=== PATIENT | female | born 1930 ===

== ENCOUNTER 2019-05-26 12:45 | Outpatient (CLI) | payer MEDICARE, OTHER ==
[2019-05-26 12:52] LABS: INR-International Normal Ratio 1.3
== END 2019-05-26 12:46 | disposition home or self-care (01) ==
LOC: MADLAB 12:45
PROVIDERS: ATTEND Nurse Practitioner Family
DX: Z51.81 Encounter for therapeutic drug level monitoring (principal); Z79.01 Long term (current) use of anticoagulants
CPT/HCPCS: 85610

== ENCOUNTER 2019-07-01 14:29 | Outpatient (CLI) | payer MEDICARE, OTHER ==
[2019-07-01 14:35] LABS: INR-International Normal Ratio 2.8; Prothrombin Time 29.1 SEC (12.0-14.7)
== END 2019-07-01 14:30 | disposition home or self-care (01) ==
LOC: MADLAB 14:29
PROVIDERS: ATTEND Internal Medicine Hematology & Oncology
DX: Z51.81 Encounter for therapeutic drug level monitoring (principal); Z79.01 Long term (current) use of anticoagulants
CPT/HCPCS: 36415; 85610

== ENCOUNTER 2019-07-20 12:36 | Outpatient (CLI) | payer MEDICARE, OTHER ==
[2019-07-20 12:47] LABS: INR-International Normal Ratio 2.7; Prothrombin Time 28.4 SEC (12.0-14.7)
== END 2019-07-20 12:37 | disposition home or self-care (01) ==
LOC: MADLAB 12:36
PROVIDERS: ATTEND Family Medicine
DX: Z51.81 Encounter for therapeutic drug level monitoring (principal); Z79.01 Long term (current) use of anticoagulants
CPT/HCPCS: 85610

== ENCOUNTER 2019-08-02 13:02 | Outpatient (CLI) | payer MEDICARE, OTHER ==
[2019-08-02 13:27] LABS: INR-International Normal Ratio 3.8; Prothrombin Time 36.8 SEC (12.0-14.7)
== END 2019-08-02 13:03 | disposition home or self-care (01) ==
LOC: MADLAB 13:02
PROVIDERS: ATTEND Family Medicine
DX: Z51.81 Encounter for therapeutic drug level monitoring (principal); Z79.01 Long term (current) use of anticoagulants
CPT/HCPCS: 85610

== ENCOUNTER 2019-08-16 12:17 | Outpatient (CLI) | payer MEDICARE, OTHER ==
[2019-08-16 13:13] LABS: Prothrombin Time 30.5 SEC (12.0-14.7)
[2019-08-16 13:15] LABS: Bilirubin Negative (Negative); Blood, Urine Trace (Negative); Clarity Slightly Cloudy (Clear); Glucose, Urine (Dipstick) Negative (Negative); Leukocyte Large (Negative); Nitrite Positive (Negative); Protein, Urine (Dipstick) Negative (Neg-Trace); Urobilinogen 0.2 mg/dL (Less than 2)
[2019-08-16 13:18] LABS: Bacteria/HPF 3+ HPF (None Seen); WBC/HPF Greater Than 50 HPF (0-3)
== END 2019-08-16 12:18 | disposition home or self-care (01) ==
LOC: MADLAB 12:17
PROVIDERS: ATTEND Urology
DX: Z51.81 Encounter for therapeutic drug level monitoring (principal); N39.0 Urinary tract infection, site not specified; Z79.01 Long term (current) use of anticoagulants
CPT/HCPCS: 81001; 85610; 87077; 87086; 87186

== ENCOUNTER 2019-08-30 13:08 | Outpatient (CLI) | payer MEDICARE, OTHER ==
[2019-08-30 13:48] LABS: INR-International Normal Ratio 3.2; Prothrombin Time 32.1 SEC (12.0-14.7)
== END 2019-08-30 13:09 | disposition home or self-care (01) ==
LOC: MADLAB 13:08
PROVIDERS: ATTEND Family Medicine
DX: Z51.81 Encounter for therapeutic drug level monitoring (principal); Z79.01 Long term (current) use of anticoagulants
CPT/HCPCS: 85610

== ENCOUNTER 2019-09-14 14:14 | Outpatient (CLI) | payer MEDICARE, OTHER ==
[2019-09-14 14:23] LABS: INR-International Normal Ratio 1.8; Prothrombin Time 20.7 SEC (12.0-14.7)
== END 2019-09-14 14:15 | disposition home or self-care (01) ==
LOC: MADLAB 14:14
PROVIDERS: ATTEND Family Medicine
DX: Z51.81 Encounter for therapeutic drug level monitoring (principal); Z79.01 Long term (current) use of anticoagulants
CPT/HCPCS: 85610

== ENCOUNTER 2019-09-27 12:02 | Outpatient (CLI) | payer MEDICARE, OTHER ==
[2019-09-27 12:56] LABS: INR-International Normal Ratio 2.9; Prothrombin Time 29.7 SEC (12.0-14.7)
== END 2019-09-27 12:03 | disposition home or self-care (01) ==
LOC: MADLAB 12:02
PROVIDERS: ATTEND Family Medicine
DX: Z51.81 Encounter for therapeutic drug level monitoring (principal); Z79.01 Long term (current) use of anticoagulants
CPT/HCPCS: 85610

== ENCOUNTER 2019-10-11 12:39 | Outpatient (CLI) | payer MEDICARE, OTHER ==
[2019-10-11 12:52] LABS: INR-International Normal Ratio 3.6; Prothrombin Time 35.9 SEC (12.0-14.7)
== END 2019-10-11 12:40 | disposition home or self-care (01) ==
LOC: MADLAB 12:39
PROVIDERS: ATTEND Family Medicine
DX: Z51.81 Encounter for therapeutic drug level monitoring (principal); Z79.01 Long term (current) use of anticoagulants
CPT/HCPCS: 85610